=== PATIENT | male | born 1990 | race Caucasian/White ===

== ENCOUNTER 2018-10-24 21:23 | Emergency (ER) | payer OTHER ==
[~2018-10-24 21:23] MED LIST: IBUP-56 PO; OMEP40CA45 PO; OMEP40CA48 PO; ONDA4TAB PO; SUCR1ORA13 PO; SUCR1TAB85 PO; ZOLP-350 PO
--- NOTE | 2018-10-24 21:26 | ER Report ---
History and Physical Time Seen By MD: 21:26 HPI/ROS CHIEF COMPLAINT: Left-sided chest pain, left arm soreness HISTORY OF PRESENT ILLNESS: Patient is a 27-year-old male here with complaints of left-sided chest pain mild lateral midaxillary line on the left side, left arm soreness which started approximately 2 hours prior to arrival. Patient de nies cough, cold symptoms, shortness breath, pleuritic pains, worsening with deep inspiration, history of cardiac issues, history of family cardiac history. Patient denies taking analgesics prior to arrival. Denies recent drug use. Denies underlying lung pathology. Patient is healthy at baseline and takes no medications on a daily basis. Patient is hemodynamically stable, lungs are clear to auscultation in all lung sun. REVIEW OF SYSTEMS: Constitutional: No fever, no chills. Eyes: No discharge. ENT: No sore throat. Cardiovascular: + left lateral chest pain, no palpitations. Respiratory: No cough, no shortness of breath. Gastrointestinal: No abdominal pain, no vomiting. Genitourinary: No hematuria. Musculoskeletal: No back pain, + left arm soreness Skin: No rashes. Neurological: No headache. Allergies: Coded Allergies: No Known Drug Allergies (Unverified , 02/28/13) Home Meds Active Scripts Omeprazole (OMEPRAZOLE) 40 Mg Capsule.dr, 40 MG PO QDAY for 30 Days, #30 CAP Prov:NADINE CARRINGTON [facility] 04/01/17 Sucralfate (CARAFATE) 1 Gm Tablet, 1 GM PO QID, #60 TAB Take before meals and at bedtime. Crush the tablet and mix with water before taking. Prov:NADINE CARRINGTON [facility] 04/01/17 Reported Medications Zolpidem Tartrate (AMBIEN) 10 Mg Tablet, 1 TAB PO HS PRN for SLEEP, TAB 04/05/17 Ibuprofen (IBUPROFEN) 200 Mg Tablet, 1-2 TAB PO PRN, TAB 04/05/17 Hx Smoking: Yes (SMOKES 1 PACK PER WEEK FOR 10 YEARS) Smoking Status: Light Tobacco Smoker Exposure to Second Hand Smoke?: Yes (OCCASIONALLY) Hx Substance Use Disorder: No Hx Alcohol Use: Yes Constitutional Vital Sign - Last 24 Hours 10/24/18 21:27 Temp 98.6 Pulse 58 Resp 17 B/P (MAP) 116/69 Pulse Ox 95 O2 Delivery Room Air Physical Exam General Appearance: The patient is alert, has no immediate need for airway protection and no signs of toxicity. NAD Eyes: Pupils equal and round no pallor or injection. ENT, Mouth: Mucous membranes are moist. Respiratory: There are no retractions, lungs are clear to auscultation. Cardiovascular: Regular rate and rhythm. Gastrointestinal: Abdomen is soft and non tender, no masses, bowel sounds normal. Neurological: No focal neuro deficits Skin: Warm and dry, no rashes. Musculoskeletal: Neck is supple non tender. Extremities are nontender, nonswollen and have full range of motion. DIFFERENTIAL DIAGNOSIS: After history and physical exam differential diagnosis was considered for chest pain including but not limited to myocardial ischemia, pericarditis pulmonary embolus, chest wall pain, pleural inflammation and pulmonary infectious causes. Medical Decision Making Data Points Result Diagram: 10/24/18212910/24/182129 Laboratory Hematology Test 10/24/18 21:30 Red Blood Count 5.75 M/uL (4.00-5.60) Mean Corpuscular Volume 83.7 fL (80.0-96.0) Mean Corpuscular Hemoglobin 29.0 pg (26.0-33.0) Mean Corpuscular Hemoglobin Concent 34.6 g/dL (32.0-36.0) Red Cell Distribution Width 12.9 % (11.5-14.5) Mean Platelet Volume 8.2 fL (7.2-11.1) Neutrophils (%) (Auto) 48.1 % (39.4-72.5) Lymphocytes (%) (Auto) 40.6 % (17.6-49.6) Monocytes (%) (Auto) 6.0 % (4.1-12.4) Eosinophils (%) (Auto) 4.4 % (0.4-6.7) Basophils (%) (Auto) 0.9 % (0.3-1.4) Nucleated RBC Relative Count (auto) 0.1 /100WBC Neutrophils # (Auto) 4.5 K/uL (2.0-7.4) Lymphocytes # (Auto) 3.8 K/uL (1.3-3.6) Monocytes # (Auto) 0.6 K/uL (0.3-1.0) Eosinophils # (Auto) 0.4 K/uL (0.0-0.5) Basophils # (Auto) 0.1 K/uL (0.0-0.1) Nucleated RBC Absolute Count (auto) 0.01 K/uL D-Dimer Quantitative (PE/DVT) < 0.27 ug/ml (0-0.50) Sodium Level 141 mmol/L (137-145) Potassium Level 3.6 mmol/L (3.5-5.0) Chloride Level 104 mmol/L (98-107) Carbon Dioxide Level 26 mmol/L (22-30) Blood Urea Nitrogen 21 mg/dl (9-21) Creatinine 1.00 mg/dl (0.66-1.25) Glomerular Filtration Rate Calc > 60.0 Random Glucose 89 mg/dl (75-110) Calcium Level 9.3 mg/dl (8.4-10.2) Total Bilirubin 0.4 mg/dl (0.2-1.3) Aspartate Amino Transf (AST/SGOT) 28 U/L (0-35) Alanine Aminotransferase (ALT/SGPT) 25 U/L (0-56) Alkaline Phosphatase 73 U/L (0-126) Troponin I < 0.012 ng/ml Total Protein 8.0 g/dl (6.3-8.2) Albumin 4.6 g/dl (3.5-5.0) Chemistry Test 10/24/18 21:30 White Blood Count 9.4 k/uL (4.5-11.0) Red Blood Count 5.75 M/uL (4.00-5.60) Hemoglobin 16.7 g/dL (14.0-18.0) Hematocrit 48.2 % (42.0-52.0) Mean Corpuscular Volume 83.7 fL (80.0-96.0) Mean Corpuscular Hemoglobin 29.0 pg (26.0-33.0) Mean Corpuscular Hemoglobin Concent 34.6 g/dL (32.0-36.0) Red Cell Distribution Width 12.9 % (11.5-14.5) Platelet Count 301 K/uL (150-450) Mean Platelet Volume 8.2 fL (7.2-11.1) Neutrophils (%) (Auto) 48.1 % (39.4-72.5) Lymphocytes (%) (Auto) 40.6 % (17.6-49.6) Monocytes (%) (Auto) 6.0 % (4.1-12.4) Eosinophils (%) (Auto) 4.4 % (0.4-6.7) Basophils (%) (Auto) 0.9 % (0.3-1.4) Nucleated RBC Relative Count (auto) 0.1 /100WBC Neutrophils # (Auto) 4.5 K/uL (2.0-7.4) Lymphocytes # (Auto) 3.8 K/uL (1.3-3.6) Monocytes # (Auto) 0.6 K/uL (0.3-1.0) Eosinophils # (Auto) 0.4 K/uL (0.0-0.5) Basophils # (Auto) 0.1 K/uL (0.0-0.1) Nucleated RBC Absolute Count (auto) 0.01 K/uL D-Dimer Quantitative (PE/DVT) < 0.27 ug/ml (0-0.50) Glomerular Filtration Rate Calc > 60.0 Calcium Level 9.3 mg/dl (8.4-10.2) Total Bilirubin 0.4 mg/dl (0.2-1.3) Aspartate Amino Transf (AST/SGOT) 28 U/L (0-35) Alanine Aminotransferase (ALT/SGPT) 25 U/L (0-56) Alkaline Phosphatase 73 U/L (0-126) Troponin I < 0.012 ng/ml Total Protein 8.0 g/dl (6.3-8.2) Albumin 4.6 g/dl (3.5-5.0) Coagulation Test 10/24/18 21:30 D-Dimer Quantitative (PE/DVT) < 0.27 ug/ml EKG/Imaging EKG Interpretation 12 lead EKG: Normal sinus rhythm, ventricular rate 65, QTC 416, no ischemic changes or arrhythmias present. Rhythm: [normal sinus rhythm] [place]: normal QRS: normal ST segments: normal Monitor Interpretation: Normal Sinus Rhythm Imaging Location: [facility] Patient: Knig Garcia : 1990 Visit/Account:[id number] Date of Sevice: 10/24/2018 CHEST: Indication: Chest pain. Technique: Frontal and lateral views were obtained. Comparison: 06/19/2017 Skeletal and soft tissue structures: Intact and unremarkable. Heart and mediastinum: Within normal limits. Lung sun: Well-expanded and clear. No focal opacities. Pleural spaces: Unremarkable. Impression: No acute process or significant change. Report Dictated By: Keo Marina MD at 10/24/2018 10:17 PM ED Course/Re-evaluation ED Course Patient is a 19-year-old male here with complaints of left lateral chest pain, left arm soreness which started approximately 2 hours prior to arrival. Patient is healthy at baseline and denies prior history of cardiac issues, congenital defects, family history of cardiac issues. There is no pleuritic component to this chest pain, chest pain is not reproducible on palpation. EKG at time of arrival was unremarkable. Basic labs, chest x-ray, dimer, troponin were checked to rule out life threats. Chest x-ray, troponin, dimer were negative. I updated the patient regarding these findings. Recommend close follow-up with PCP, NSAIDs as needed for analgesics. Patient was hemodynamically stable at time of discharge. Decision to Disposition Date: Oct 24, 2018 Decision to Disposition Time: 22:53 Depart Departure Latest Vital Signs Vital Signs Date Time Temp Pulse Resp B/P (MAP) Pulse Ox O2 Delivery O2 Flow Rate FiO2 10/24/18 21:27 98.6 58 17 116/69 95 Room Air Impression: Primary Impression: Chest wall pain Condition: Improved Disposition: HOME OR SELF-CARE Referrals: ELENO VALDIVIA MD (PCP) Patient Instructions: Musculoskeletal Pain (ED) Additional Instructions: Please drink plenty of water. You may take NSAIDs such as ibuprofen or naproxen for the next 2-3 days for treatment of pain. Your chest x-ray showed no acute fractures, bleeds, signs of infection. Your EKG, cardiac enzymes, d-dimer which is a surrogate for clot were found to be negative. Please follow-up in the next 3 days with her family doctor for outpatient treatment and care. Please return promptly if develop fevers, shortness breath, chest pains, nausea, vomiting. SARA CHRISTIANSON DO Oct 24, 2018 21:26
--- NOTE | 2018-10-24 22:24 | RADIOLOGY IMAGING REPORT ---
FACILITY: [facility] - [place] PATIENT NAME: King Garcia : 1990 MR: [id number] V: [id number] EXAM DATE: ORDERING PHYSICIAN: SARA CHRISTIANSON TECHNOLOGIST: Location: [facility] [place] Patient: King Garcia : 1990 Visit/Account:[id number] Date of Sevice: 10/24/2018 CHEST: Indication: Chest pain. Technique: Frontal and lateral views were obtained. Comparison: 06/19/2017 Skeletal and soft tissue structures: Intact and unremarkable. Heart and mediastinum: Within normal limits. Lung sun: Well-expanded and clear. No focal opacities. Pleural spaces: Unremarkable. Impression: No acute process or significant change. Report Dictated By: Keo Marina MD at 10/24/2018 10:17 PM Report E-Signed By: Keo Marina MD at 10/24/2018 10:19 PM WSN:[id number]
[2018-10-24 22:27] LABS: PLATELET COUNT, AUTOMATED 301 K/uL (150-450)
--- NOTE | 2018-10-24 22:41 | EKG ---
FACILITY: [facility] PATIENT NAME: MATHEW MANZANO : [id number] MR: [id number] V: [id number] EXAM DATE: ORDERING PHYSICIAN: SARA CHRISTIANSON TECHNOLOGIST: JONO Test Reason : CHESTPAIN Blood Pressure : / mmHG Vent. Rate : 065 BPM Atrial Rate : 065 BPM P-R Int : 128 ms QRS Dur : 094 ms QT Int : 400 ms P-R-T Axes : 083 079 074 degrees QTc Int : 416 ms Sinus arrhythmia Possible right atrial enlargement Diffuse ST elevation - suspect early repolarization, but cannot exclude other causes No previous ECGs available Confirmed by HUGO SALES ([id number]) on 10/25/2018 9:50:18 AM Referred By: Confirmed By:HUGO SALES
[2018-10-24 23:00] VITALS: BP 99/67
== END 2018-10-24 23:09 | disposition home or self-care (01) ==
LOC: ER 21:27
DX: R07.89 Other chest pain (principal)
CPT/HCPCS: 71046; 82040; 82247; 82310; 82374; 82435; 82565; 82947; 84075; 84132; 84155; 84295; 84450; 84460; 84484; 84520; 85025; 85379; 93005; 99284

== ENCOUNTER 2019-06-06 01:18 | Emergency (ER) | payer OTHER ==
[2019-06-06] MEDS ORDERED: IBUPROFEN 600 MG TAB PO ONE (01:35)
[2019-06-06] MEDS ORDERED: APAP/HYDROCODONE 325/5 TAB PO ONE (01:35)
[2019-06-06] MEDS ORDERED: LOR5/325 PO (01:59)
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
[2019-06-06 02:00] VITALS: BP 104/83
[2019-06-06] MEDS ORDERED: ACET/HYDROC 5/325MG TH ER ONLY 2 TAB/BOTTLE PO ONE (02:00)
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
== END 2019-06-06 02:07 | disposition home or self-care (01) ==
LOC: ER 01:30
DX: S42.021A Displaced fracture of shaft of right clavicle, initial encounter for closed fracture (principal); V19.9XXA Pedal cyclist (driver) (passenger) injured in unspecified traffic accident, initial encounter
CPT/HCPCS: 71045; 73030; 99284; A4565